=== PATIENT | female | born 1930 | race Caucasian/White ===

== ENCOUNTER 2016-11-13 13:20 | Emergency (ER) | payer MEDICAID ==
[~2016-11-13] VITALS: Ht 162.6 cm; Wt 68.0 kg
[~2016-11-13 13:20] MED LIST: ALBU2.5V7 INH; CHLO473M5 MM; DULR10 RC; EPOE20006 IJ; LACTIN GT; MAGN400O4 GT; MULT240L PO; OMEP40CA33 GT; PHEN100O4 GT; SIMV10TA2 GT; TYLL650 GT; ZIN220 GT
[2016-11-13 13:28] VITALS: BP_SYST 107
[2016-11-13] MEDS ORDERED: GASTROGRAFIN 120 ML ONE (13:46)
[2016-11-13 14:33] VITALS: BP_SYST 104
== END 2016-11-13 14:33 | disposition home or self-care (01) ==
LOC: SED 13:20
DX: Z46.59 Encounter for fitting and adjustment of other gastrointestinal appliance and device (principal); I25.2 Old myocardial infarction; E11.9 Type 2 diabetes mellitus without complications; I10 Essential (primary) hypertension; E78.00 Pure hypercholesterolemia, unspecified; G20 Parkinson's disease; F02.80 Dementia in other diseases classified elsewhere, unspecified severity, without behavioral disturbance, psychotic disturbance, mood disturbance, and anxiety; Z79.899 Other long term (current) drug therapy
CPT/HCPCS: 43760; 74240; 99284; Q9963

== ENCOUNTER 2018-05-22 14:52 | Emergency (ER) | payer MEDICAID ==
[~2018-05-22] VITALS: Ht 165.1 cm; Wt 74.8 kg
[2018-05-22 14:52] VITALS: BP_SYST 135
[~2018-05-22 14:52] MED LIST changes: -MAGN400O4 GT; +MOM GT
--- NOTE | 2018-05-22 14:52 | NUR ---
PATIENT BROUGHT IN BY [facility] COMING FROM [facility] C/C G-TUBE DISPLACED. PATIENT IS TRACH DEPENDENT, PRESENTS WITH G-TUBE IN PLACE, + PATENT, AND FLUSHED WITH 10CC OF WATER.
--- NOTE | 2018-05-22 14:53 | NUR ---
MD MENSAH AT BEDSIDE.
--- NOTE | 2018-05-22 15:41 | NUR ---
X-RAY IN PROGRESS AT BEDSIDE FOR G-TUBE PLACEMENT.
[2018-05-22] MEDS ORDERED: GASTROGRAFIN 120 ML ONE (15:44)
--- NOTE | 2018-05-22 19:37 | NUR ---
Patient resting comfortably, vent settings remain the same. awaiting transfer back to [facility]
--- NOTE | 2018-05-22 21:43 | NUR ---
report called to riki ceballos.
--- NOTE | 2018-05-22 21:44 | NUR ---
Patient to be transferred to [facility]. ER physician has signed transfer form. Patient or responsible democrat has agreed to transfer and signed form. Patient belongings inventoried and will be sent with patient. Copy of nursing notes, lab reports, EKG, Physicians Orders and X-rays to be sent with patient. Report called to Allie at receiving facility. [facility] has been called for transfer is at bedside and taking patient now.
[2018-05-22 21:46] VITALS: BP_SYST 135
== END 2018-05-22 21:44 | disposition home or self-care (01) ==
LOC: SED 14:52
DX: K94.23 Gastrostomy malfunction (principal); I25.2 Old myocardial infarction; E11.29 Type 2 diabetes mellitus with other diabetic kidney complication; N28.9 Disorder of kidney and ureter, unspecified; I10 Essential (primary) hypertension; G20 Parkinson's disease; F02.80 Dementia in other diseases classified elsewhere, unspecified severity, without behavioral disturbance, psychotic disturbance, mood disturbance, and anxiety; Z79.899 Other long term (current) drug therapy
CPT/HCPCS: 74240; 99283; Q9963